=== PATIENT | female | born 1945 | race African-American/Black ===

== ENCOUNTER 2016-06-10 02:43 | Emergency (ER) | payer OTHER ==
[~2016-06-10] VITALS: Ht 160 cm; Wt 77.1 kg
[~2016-06-10 02:43] MED LIST: PERCOCET1 TAB ORAL; SOMA350 MG PO; VICODIN 5-3001 EACH ORAL
[2016-06-10] MEDS ORDERED: Oxymetazoline 0.05% Na Spray 30ml NASAL ONE ×2 (02:59→03:15)
[2016-06-10 03:04] VITALS: BP 165/86
[2016-06-10] MEDS ORDERED: Ketorolac 60mg Inj IM ONE (03:15)
[2016-06-10 03:18] VITALS: BP 165/86
--- NOTE | 2016-06-10 03:39 | Emergency Room Report ---
History of Present Illness General Chief Complaint: Nosebleed Source: Patient Present Illness HPI 70 YO F with concern for recurrent right sided epistaxis since the weekend (3 days). States her mother has been "turning up the heat" in the apartment. Last episode was "1 hour prior." She denies previous episodes. Was able to control the bleeding with applying pressure to nose and ice. Denies digital picking. Denies trauma, rhinorrhea, sinus congestion. Patient also c/o chronic right knee pain. States "I'm due for knee replacement. " Taking Vicodin at home. Requesting injection for pain. Allergies: Coded Allergies: PENICILLINS (Unverified Allergy, Mild, 11/23/13) Patient History Past Medical History: none Past Surgical History: none Pertinent Family History: none Social History: Denies: alcohol use, drug use, smoking Now: No Immunizations: UTD Reviewed Nursing Documentation: PMH: Agreed, PSxH: Agreed Nursing Documentation-PMH Past Medical History: No Stated History Review of Systems All Other Systems: negative except mentioned in HPI Physical Exam Vital Signs Date Time Temp Pulse Resp B/P Pulse Ox O2 Delivery O2 Flow Rate FiO2 06/10/16 02:46 97.9 82 16 171/86 96 Room Air Sp02 EP Interpretation: reviewed, normal General Appearance: normal inspection, well appearing, no apparent distress, alert, GCS 15, non-toxic Head: normocephalic, atraumatic Eyes: bilateral eye EOMI, bilateral eye PERRL ENT: normal ENT inspection, hearing grossly normal, normal pharynx, no angioedema, normal voice, TMs + canals normal, uvula midline, other - No active epistaxis. No dried blood in nares or oropharynx. Neck: normal inspection, full range of motion, supple, no bony tend Respiratory: normal inspection, chest non-tender, lungs clear, normal breath sounds, no rhonchi, no respiratory distress, no retraction, no accessory muscle use, no wheezing Cardiovascular #1: regular rate, rhythm, no edema Gastrointestinal: normal inspection, normal bowel sounds, non tender, soft, no guarding, no hernia Genitourinary: no CVA tenderness Musculoskeletal: normal inspection, back normal, normal range of motion, Alicia' s Sign negative, other - right knee: no obvious swelling/deformity, appreciable heat or sign of infection Neurologic: normal inspection, alert, oriented x3, responsive, community affairs manager III-XII nml as tested, motor strength/tone normal, speech normal Medical Decision Making Diagnostic Impression: Primary Impression: Epistaxis Additional Impression: Right knee pain Qualified Codes: M25.561 - Pain in right knee; G89.29 - Other chronic pain ER Course Alleged epistaxis: No active bleeding. VSS. Afebrile. Rx Afrin given Chronic right knee pain: Atraumatic. No sign of infection or trauma. ROM intact. IM toradol given in ED Patient requesting work note "in case the bleeding happens again." I told her I could give her off for tomorrow//06-10 but not a work note "in case" it happens again. After this exchange, I am concerned for malingering to receive time off from work given that patient endorsed recent epistaxis just prior to ED arrival but does not even demonstrate dried blood in nose or oropharynx Last Vital Signs Date Time Temp Pulse Resp B/P Pulse Ox O2 Delivery O2 Flow Rate FiO2 06/10/16 03:18 97.9 80 16 165/86 96 Room Air Status: improved Disposition: HOME, SELF-CARE Condition: Improved Referrals: BRANDAN TANNER MD (PCP) Patient Instructions: Nosebleed, [id number] Additional Instructions: - Use afrin 2 sprays each nostril, twice a day for only 2-3 days - Take Tylenol or appy ice to right knee for pain NARENDRA PINEDO M.D. Jun 10, 2016 03:39
[2016-06-11] MEDS ORDERED: PERCOCET 5-3251 EACH ORAL (02:36)
== END 2016-06-10 03:18 | disposition home or self-care (01) ==
LOC: EMR 03:03
DX: R04.0 Epistaxis (principal); M25.561 Pain in right knee; G89.29 Other chronic pain; Z88.0 Allergy status to penicillin
CPT/HCPCS: 30901

== ENCOUNTER 2016-06-10 23:03 | Emergency (ER) | payer OTHER ==
[~2016-06-10] VITALS: Ht 160 cm; Wt 78.5 kg
[2016-06-11] MEDS ORDERED: Silver Nitrate Stick TOPIC ONE (02:15)
[2016-06-11] MEDS ORDERED: Oxycodone/Acetaminophen 5-325 ORAL ONE (02:15)
[2016-06-11] MEDS ORDERED: PERCOCET 5-3251 EACH ORAL (02:36)
[2016-06-11 02:50] VITALS: BP 160/98
--- NOTE | 2016-06-11 03:32 | Emergency Room Report ---
History of Present Illness General Chief Complaint: Nosebleed Source: Patient Present Illness HPI 70 YO F returns again for 2nd night in a row for epistaxis, also for right nare. Placed cotton wick with resolution. Again denies digital manipulation. No other trauma. Allergies: Coded Allergies: PENICILLINS (Unverified Allergy, Mild, 11/23/13) Patient History Past Medical History: HTN Past Surgical History: none Pertinent Family History: none Social History: Denies: alcohol use, drug use, smoking Now: No Immunizations: UTD Reviewed Nursing Documentation: PMH: Agreed, PSxH: Agreed Nursing Documentation-PMH Past Medical History: No Stated History Review of Systems All Other Systems: negative except mentioned in HPI Physical Exam Vital Signs Date Time Temp Pulse Resp B/P Pulse Ox O2 Delivery O2 Flow Rate FiO2 06/10/16 23:06 97.2 90 18 183/114 93 Room Air Sp02 EP Interpretation: reviewed, normal General Appearance: normal inspection, well appearing, no apparent distress, alert Head: normocephalic, atraumatic Eyes: bilateral eye EOMI, bilateral eye PERRL ENT: normal ENT inspection, hearing grossly normal, normal voice, other - oozing at right keiselbech plexus. No blood in oropharynx. Left nare clear Neck: normal inspection, full range of motion, supple, no bony tend Respiratory: normal inspection, lungs clear, normal breath sounds, no respiratory distress, no retraction, no wheezing Cardiovascular #1: regular rate, rhythm, no edema Gastrointestinal: normal inspection, normal bowel sounds, non tender, soft, no guarding, no hernia Genitourinary: no CVA tenderness Musculoskeletal: normal inspection, back normal, normal range of motion, Alicia' s Sign negative Neurologic: normal inspection, alert, oriented x3, responsive, applications specialist III-XII nml as tested, motor strength/tone normal Psychiatric: normal inspection, judgement/insight normal, mood/affect normal Procedures Additional Procedure Procedure Narrative Cauterization of oozing from right nare Patient placed supine Area of oozing in plexus visualized with scope/light one application of silver nitrate stick used to create eschar, oozing stopped 1 attempt No complications Patient tolerated procedure, pleased with result Medical Decision Making Diagnostic Impression: Primary Impression: Epistaxis ER Course Recurrent epistaxis. VSS. Afebrile. Controlled with cautery in ED. Advised ENT followup in 2 days Last Vital Signs Date Time Temp Pulse Resp B/P Pulse Ox O2 Delivery O2 Flow Rate FiO2 06/11/16 02:50 97.2 80 18 160/98 93 Room Air Status: improved Disposition: HOME, SELF-CARE Condition: Improved Scripts Oxycodone/Acetaminophen 5-325* (PERCOCET 5-325 MG TABLET*) 1 Each Tablet 1 TAB ORAL Q6H Y for For Pain, #20 TAB Prov: NARENDRA PINEDO M.D. 06/11/16 Referrals: NON PHYSICIAN (PCP) Patient Instructions: Nosebleed, [id number] Additional Instructions: - You had cauterization of bleeding vessel in right keisselbach plexus in the ER - Please followup with ENT in 2-3 days - You can take percocet as needed for pain - Keep nose clean/dry, do not spray afrin there anymore - Return to ER if bleeding occurs again for balloon placement NARENDRA PINEDO M.D. Jun 11, 2016 03:32
== END 2016-06-11 02:50 | disposition home or self-care (01) ==
LOC: EMR 23:27
DX: R04.0 Epistaxis (principal); I10 Essential (primary) hypertension; Z88.0 Allergy status to penicillin; M25.561 Pain in right knee; G89.29 Other chronic pain
CPT/HCPCS: 30901

== ENCOUNTER 2016-06-23 05:51 | Emergency (ER) | payer OTHER ==
[~2016-06-23] VITALS: Ht 157.5 cm; Wt 77.1 kg
[~2016-06-23 05:51] MED LIST changes: +PERCOCET 5-3251 EACH ORAL
[2016-06-23 06:40] VITALS: BP 187/94
[2016-06-23] MEDS ORDERED: Oxycodone/Acetaminophen 5-325 ORAL ONE (07:00)
[2016-06-23] MEDS ORDERED: Silver Nitrate Stick TOPIC ONE (07:00)
[2016-06-23] MEDS ORDERED: Oxymetazoline 0.05% Na Spray 30ml NASAL ONE (07:15)
[2016-06-23] MEDS ORDERED: NORVASC5 MG ORAL (07:48)
[2016-06-23] MEDS ORDERED: PERCOCET 5-3251 EACH ORAL (07:48)
--- NOTE | 2016-06-23 07:56 | Emergency Room Report ---
History of Present Illness General Chief Complaint: Nosebleed Source: Patient Present Illness HPI 70 YO F here for third visit in last month for recurrent epistaxis, this time on left side. Started at 3am. Has stopped already. Patient states her mother keeps house warm. Patient denies digital manipulation, trauma. Of note, patient has had elevated BP each of the 3 visits here for epistaxis. ? whether correlation between HTN and epistaxis. BP could also be high because of OA - patient ran out of home pain meds. Has ortho appt upcoming for possible right knee replacement. Not diagnosed with HTN nor ever treated for it. Allergies: Coded Allergies: PENICILLINS (Unverified Allergy, Mild, 11/23/13) Patient History Past Medical History: none Past Surgical History: none Pertinent Family History: none Social History: Denies: alcohol use, drug use, smoking Last Menstrual Period: Menopause Now: No Immunizations: UTD Reviewed Nursing Documentation: PMH: Agreed, PSxH: Agreed Nursing Documentation-PMH Past Medical History: No Stated History Review of Systems All Other Systems: negative except mentioned in HPI Physical Exam Vital Signs Date Time Temp Pulse Resp B/P Pulse Ox O2 Delivery O2 Flow Rate FiO2 06/23/16 06:36 98.1 73 15 187/94 97 Room Air Sp02 EP Interpretation: reviewed, abnormal General Appearance: normal inspection, well appearing, no apparent distress, alert, GCS 15, non-toxic Head: normocephalic, atraumatic Eyes: bilateral eye EOMI, bilateral eye PERRL ENT: normal pharynx, no angioedema, normal voice, TMs + canals normal, uvula midline, moist mucus membranes, other - Right nare: normal. Left nare: dried blood in anterior plexus with mild amount of oozing Neck: normal inspection, full range of motion, supple, no bony tend Respiratory: normal inspection, lungs clear, normal breath sounds, no respiratory distress, no retraction, no wheezing Cardiovascular #1: regular rate, rhythm, no edema Gastrointestinal: normal inspection, normal bowel sounds, non tender, soft, no guarding, no hernia Genitourinary: no CVA tenderness Musculoskeletal: normal inspection, back normal, normal range of motion, Alicia' s Sign negative Neurologic: normal inspection, alert, oriented x3, responsive, speech normal Psychiatric: normal inspection, judgement/insight normal, mood/affect normal Skin: normal inspection, normal color, no rash Medical Decision Making Diagnostic Impression: Primary Impression: Epistaxis ER Course 70 YO F with recurrent epistaxis. Elevated BP. Afebrile. Oxymetazoline spray to left nostril followed by silver nitrate cautery CT sinuses: no acute finding to explain epistaxis. Incidental thyroid mass - patient/family informed of need for followup; copy given of CT result to them as well Started Norvasc in ED. Will Rx Norvasc 30 days. Recommended PMD followup Advised to avoid NSAIDs for pain. Rx [place] provided DC home Last Vital Signs Date Time Temp Pulse Resp B/P Pulse Ox O2 Delivery O2 Flow Rate FiO2 06/23/16 06:40 98.1 98 16 187/94 99 Room Air Status: improved Disposition: HOME, SELF-CARE Condition: Improved Scripts Oxycodone/Acetaminophen 5-325* (PERCOCET 5-325 MG TABLET*) 1 Each Tablet 1 TAB ORAL Q6H Y for For Pain, #20 TAB Prov: NARENDRA PINEDO M.D. 06/23/16 Amlodipine Besylate (Norvasc) 5 Mg Tablet 5 MG ORAL DAILY for 30 Days, #30 TAB Prov: NARENDRA PINEDO M.D. 06/23/16 Referrals: [facility],REFERRING (PCP) Patient Instructions: Hypertension, [id number], Nosebleed, [id number], Managing Your High Blood Pressure Additional Instructions: - Use nose spray at home, both sides, 1 spray twice a day for 3 days - START taking norvasc 5mg each morning (starting ) for high blood pressure and followup with your doctor - Call insurance company for ENT referral NARENDRA PINEDO M.D. Jun 23, 2016 07:56
[2016-06-23 08:43] VITALS: BP 174/92
--- NOTE | 2016-06-23 08:57 | Diagnostic Imaging Report ---
Indication: Trauma Technique: Continuous helical transaxial imaging of the maxillofacial structures obtained without intravenous contrast administration. Coronal 2-D reformats were also obtained. Study obtained in a Siemens sensation [address] Total Dose length Product (DLP): [address] Dose Index Volume (CTDIvol): 28 mGy Comparison: None Findings: No acute fracture is identified. There is slight indentation of a portion of the right lamina paprycea consistent with an old medial orbital wall fracture. The paranasal sinuses are essentially clear. Mastoids are clear bilaterally. Orbits are unremarkable in appearance. Incidentally, there is shift of the airway toward the right side which appears to be on the basis of a left-sided mass. This is probably an enlarged thyroid gland and is not assessed adequately on this examination. Impression: No acute fracture identified. 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 Rightward deviation of the airway probably on the basis of an enlarged left lobe of the thyroid gland, although incompletely imaged on this examination. The CT scanner at [facility] is accredited by the [employer] and the scans are performed using protocols designed to limit radiation exposure to as low as reasonably achievable to attain images of sufficient resolution adequate for diagnostic evaluation.
[2016-06-23 09:23] VITALS: BP 177/89
[2016-06-23 09:24] VITALS: BP 177/89
== END 2016-06-23 09:28 | disposition home or self-care (01) ==
LOC: EMR 06:57
DX: R04.0 Epistaxis (principal); M19.90 Unspecified osteoarthritis, unspecified site; Z88.0 Allergy status to penicillin
CPT/HCPCS: 70486; 99284

== ENCOUNTER 2016-11-01 10:10 | Emergency (ER) | payer OTHER ==
[~2016-11-01] VITALS: Ht 165.1 cm; Wt 81.2 kg
[~2016-11-01 10:10] MED LIST changes: +NORVASC5 MG ORAL
[2016-11-01 10:14] VITALS: BP 150/79
[2016-11-01] MEDS ORDERED: Ketorolac 60mg Inj IM ONE (11:00)
[2016-11-01] MEDS ORDERED: ROBAXIN-750750 MG PO (11:26)
[2016-11-01 11:40] VITALS: BP 150/79
--- NOTE | 2016-11-03 07:20 | Emergency Room Report ---
History of Present Illness General Chief Complaint: Back Pain-No Injury Source: Patient Present Illness HPI 71YOF [employer] walk-in patient with "back spasms" for 1 day after heavy cleaning/vacuuming preparing for house guests. Denies known lower back pain, sciatica, disc issues Denies fever/chills, urinary complaints Denies nausea/vomiting, chest pain, SOB, abd pain, headache Allergies: Coded Allergies: ASPIRIN (Verified Allergy, Severe, 11/01/16) bleeding PENICILLINS (Unverified Allergy, Mild, 11/23/13) Patient History Past Medical History: HTN Past Surgical History: none Pertinent Family History: none Social History: Denies: alcohol use, drug use, smoking Last Menstrual Period: na Now: No Immunizations: UTD Reviewed Nursing Documentation: PMH: Agreed, PSxH: Agreed Nursing Documentation-PMH Past Medical History: No Stated History Review of Systems All Other Systems: negative except mentioned in HPI Physical Exam Vital Signs Date Time Temp Pulse Resp B/P Pulse Ox O2 Delivery O2 Flow Rate FiO2 11/01/16 10:14 98.8 77 18 150/79 100 Room Air Sp02 EP Interpretation: reviewed, normal General Appearance: normal inspection, well appearing, no apparent distress, alert, GCS 15, non-toxic Head: normocephalic, atraumatic Eyes: bilateral eye EOMI, bilateral eye PERRL ENT: normal ENT inspection, hearing grossly normal, normal voice Neck: normal inspection, full range of motion, supple, no bony tend Respiratory: normal inspection, lungs clear, normal breath sounds, no respiratory distress, no retraction, no wheezing Cardiovascular #1: regular rate, rhythm, no edema Gastrointestinal: normal inspection, normal bowel sounds, non tender, soft, no guarding, no hernia Genitourinary: no CVA tenderness Musculoskeletal: other - Multiple areas of tight/spasm in back Neurologic: normal inspection, alert, oriented x3, responsive, electron beam welding machine operator III-XII nml as tested, motor strength/tone normal, speech normal Psychiatric: normal inspection, judgement/insight normal, mood/affect normal Skin: normal inspection, normal color, no rash Medical Decision Making Diagnostic Impression: Primary Impression: Back pain Qualified Codes: M54.6 - Pain in thoracic spine ER Course Multiple areas of back spasm VSS Afebrile Likely result of heavy cleaning/vacuuming day before Pain worse with movement Unlikely cardio-throacic or abd emergency given preciptating activity that caused pain, and pain worse with movement Resolved with valium, toradol Rx Robaxin Close PMD followup DC home Last Vital Signs Date Time Temp Pulse Resp B/P Pulse Ox O2 Delivery O2 Flow Rate FiO2 11/01/16 11:40 98.8 77 18 150/79 100 Room Air Status: improved Disposition: HOME, SELF-CARE Condition: Improved Scripts Methocarbamol* (ROBAXIN-750*) 750 Mg Tablet 750 MG PO TID for 7 Days, #30 TAB 0 Refills Prov: NARENDRA PINEDO M.D. 11/01/16 Referrals: [facility],REFERRING (PCP) Patient Instructions: Back Pain, Adult Additional Instructions: - Take Robaxin up to 3x a day for muscle pain/spasm - Try to stetch as often as possible - Apply heat or ice, see what works better - Follow up with primary care doctor for worsening pain NARENDRA PINEDO M.D. Nov 03, 2016 07:20
== END 2016-11-01 11:43 | disposition home or self-care (01) ==
LOC: EMR 10:44
DX: M54.6 Pain in thoracic spine (principal); I10 Essential (primary) hypertension; Z88.0 Allergy status to penicillin; Z79.82 Long term (current) use of aspirin
CPT/HCPCS: 96372; 99283

== ENCOUNTER 2017-07-23 20:19 | Emergency (ER) | payer SELFPAY ==
[~2017-07-23] VITALS: Ht 160 cm; Wt 79.4 kg
[~2017-07-23 20:19] MED LIST changes: +ROBAXIN-750750 MG PO
--- NOTE | 2017-07-23 20:50 | Emergency Room Report ---
History of Present Illness General Chief Complaint: Pain Source: Patient Present Illness HPI Patient is a 71-year-old female who presented after increased right-sided knee pain. Previous knee replacement. Patient reports having worsening pain. Had this had gradual onset. She denies any fever. She denies any knee discharge from her surgical site. She denies any calf pain or swelling. Patient had been unable to ambulate well. She denies any recent trauma or falls. Allergies: Coded Allergies: ASPIRIN (Verified Allergy, Severe, 11/01/16) bleeding PENICILLINS (Unverified Allergy, Mild, 11/23/13) Patient History Past Medical History: see triage record Last Menstrual Period: none Now: No : 3 Para: 3 Reviewed Nursing Documentation: PMH: Agreed; PSxH: Agreed Nursing Documentation-PMH Hx Cardiac Problems: No - right knee surgery Review of Systems All Other Systems: negative except mentioned in HPI Physical Exam Vital Signs Date Time Temp Pulse Resp B/P (MAP) Pulse Ox O2 Delivery O2 Flow Rate FiO2 07/23/17 20:28 98.6 84 15 168/77 95 Room Air 98.6 General Appearance: well appearing, no apparent distress, alert, GCS 15 Head: normocephalic, atraumatic ENT: hearing grossly normal, normal voice Neck: full range of motion, supple Respiratory: no respiratory distress, speaking full sentences Cardiovascular #1: normal inspection Musculoskeletal: no calf tenderness, other - no erythema or swelling noted Neurologic: alert, oriented x3, responsive, normal gait Psychiatric: mood/affect normal Skin: no rash Medical Decision Making Diagnostic Impression: Primary Impression: Knee pain, acute Additional Impression: Chronic knee pain ER Course Patient presented for right knee pain. Differential diagnosis included was not limited to infected hardware, loosening of hardware, DVT, vascular insufficiency , among others. Patient has a benign exam and does not appear to require any further imaging or laboratory testing at this time. The patient was offered x- rays of her right knee which she declined she stated she wanted to see her orthopedic physician. The patient was given prescription for pain medications. She is advised to follow-up with her orthopedist for repeat examination and further evaluation. Last Vital Signs Date Time Temp Pulse Resp B/P (MAP) Pulse Ox O2 Delivery O2 Flow Rate FiO2 07/23/17 20:28 98.6 84 15 168/77 95 Room Air 98.6 Status: improved Disposition: HOME, SELF-CARE Condition: Stable Mike Strauss Jul 23, 2017 20:50
[2017-07-23] MEDS ORDERED: PERCOCET 5-3251 EACH ORAL (20:51)
[2017-07-23 21:00] VITALS: BP 159/81
[2017-07-23] MEDS ORDERED: oxyCODONE HCL/Acetaminophen 5/325mg ORAL ONE (21:00)
== END 2017-07-23 21:05 | disposition home or self-care (01) ==
LOC: EMR 21:01
DX: M25.561 Pain in right knee (principal); G89.29 Other chronic pain; Z96.659 Presence of unspecified artificial knee joint; Z88.0 Allergy status to penicillin; Z88.6 Allergy status to analgesic agent
CPT/HCPCS: 99282

== ENCOUNTER 2017-09-18 17:47 | Emergency (ER) | payer SELFPAY ==
[~2017-09-18] VITALS: Ht 157.5 cm; Wt 81.6 kg
[2017-09-18 18:29] VITALS: BP 139/79
[2017-09-18 19:18] VITALS: BP 139/79
--- NOTE | 2017-09-18 19:42 | Emergency Room Report ---
History of Present Illness General Chief Complaint: Pain Source: Patient Present Illness HPI 71-year-old female presents ED for evaluation. Complaining of right knee pain. Patient states she has persistent knee pain for years. Had a knee replacement in April at [facility]. Has been prescribed pain medication by her PMD but states that she ran out. Pain is throbbing, 10 out of 10, nonradiating. Denies any recent injury. Is able to walk. No other aggravating relieving factors. Denies any other associated symptoms Allergies: Coded Allergies: ASPIRIN (Verified Allergy, Severe, 11/01/16) bleeding PENICILLINS (Unverified Allergy, Mild, 11/23/13) Patient History Past Medical History: none Past Surgical History: other - R knee replacement Pertinent Family History: none Social History: Denies: smoking, alcohol use, drug use Now: No Immunizations: UTD Reviewed Nursing Documentation: PMH: Agreed; PSxH: Agreed Nursing Documentation-PMH Past Medical History: No History, Except For Hx Cardiac Problems: No - right knee surgery Hx Neurological Problems: Yes - arthritis Review of Systems All Other Systems: negative except mentioned in HPI Physical Exam Vital Signs Date Time Temp Pulse Resp B/P (MAP) Pulse Ox O2 Delivery O2 Flow Rate FiO2 09/18/17 17:55 97.6 76 18 139/79 98 Room Air 97.5 Sp02 EP Interpretation: reviewed, normal General Appearance: no apparent distress, alert, GCS 15, non-toxic Head: normocephalic Eyes: bilateral eye normal inspection, bilateral eye PERRL ENT: normal ENT inspection Neck: normal inspection Respiratory: normal inspection Cardiovascular #1: normal inspection Gastrointestinal: normal inspection Rectal: deferred Genitourinary: no CVA tenderness Musculoskeletal: normal range of motion, tender - R knee Neurologic: alert, oriented x3, responsive, motor strength/tone normal, sensory intact, speech normal Psychiatric: normal inspection Skin: normal inspection Lymphatic: normal inspection Medical Decision Making Diagnostic Impression: Primary Impression: Chronic knee pain Qualified Codes: M25.561 - Pain in right knee; G89.29 - Other chronic pain Additional Impression: Opiate dependence Qualified Codes: F11.20 - Opioid dependence, uncomplicated ER Course Hospital Course 71-year-old male presents to ED complaining of R knee pain no trauma Differential diagnoses include: Fracture, dislocation, sprain, contusion, bursitis Clinical course Patient placed on stretcher. After initial history, physical exam reveals an middle-aged female in no acute distress. There is evidence of a old surgical scar to the right knee. No swelling. No induration. Full range of motion. I reviewed EMR patient has been here multiple times for pain-related complaints. I reviewed CURES patient is receiving high quantity of pain medications. I explained to the patient that I cannot provide any additional prescriptions and she needs to follow-up with her PMD or orthopedic doctor. I agreed to provide her with pain medication here which she agreed to take Diagnosis - chronic knee pain, opiate dependence Stable and discharged to home. Followup with PMD. Return to ED if symptoms recur or worsen Last Vital Signs Date Time Temp Pulse Resp B/P (MAP) Pulse Ox O2 Delivery O2 Flow Rate FiO2 09/18/17 19:18 97.5 81 18 139/79 98 Room Air 97.5 Status: improved Disposition: HOME, SELF-CARE Condition: Stable Referrals: NOT CHOSEN [facility]/,REFERRING (PCP) Patient Instructions: Chronic Pain Hema Bryant MD Sep 18, 2017 19:42
== END 2017-09-18 19:18 | disposition home or self-care (01) ==
LOC: EMR 18:30
DX: M25.561 Pain in right knee (principal); G89.29 Other chronic pain; F11.20 Opioid dependence, uncomplicated; M19.90 Unspecified osteoarthritis, unspecified site; Z88.0 Allergy status to penicillin; Z88.6 Allergy status to analgesic agent; Z96.651 Presence of right artificial knee joint
CPT/HCPCS: 99283

== ENCOUNTER 2018-03-12 15:22 | Emergency (ER) | payer OTHER ==
[~2018-03-12] VITALS: Ht 157.5 cm; Wt 77.1 kg
[2018-03-12 15:49] VITALS: BP 198/87
[2018-03-12] MEDS ORDERED: Morphine Sulfate 4mg/ml Inj (IV/IM USE ONLY) IM ONE (16:00)
[2018-03-12] MEDS ORDERED: SOMA350 MG PO (16:00)
[2018-03-12 16:10] VITALS: BP 159/87
--- NOTE | 2018-03-12 18:19 | Emergency Room Report ---
History of Present Illness General Chief Complaint: Pain Source: Patient Present Illness HPI 72-year-old female presents to ED complaining of left knee pain and lower back pain for 3 days. Denies any recent fall or injury. Patient has history of chronic knee pain. Patient is well-known to [facility] [place]. States that her doctor is out of town and she cannot get a refill of her pain meds. Pain is 8 out of 10, dull, nonradiating. s dysuria or flank pain. No other aggravating relieving factors. Allergies: Coded Allergies: ASPIRIN (Verified Allergy, Severe, 11/01/16) bleeding PENICILLINS (Unverified Allergy, Mild, 11/23/13) Patient History Past Medical History: none Past Surgical History: none Pertinent Family History: no significant inherited disorders Now: No Immunizations: UTD Reviewed Nursing Documentation: PMH: Agreed; PSxH: Agreed Nursing Documentation-PMH Past Medical History: No History, Except For Hx Cardiac Problems: No - right knee surgery Hx Neurological Problems: Yes - arthritis Review of Systems All Other Systems: negative except mentioned in HPI Physical Exam Physical Exam Vital Signs Date Time Temp Pulse Resp B/P (MAP) Pulse Ox O2 Delivery O2 Flow Rate FiO2 03/12/18 15:30 98.4 68 18 204/95 97 Room Air Sp02 EP Interpretation: reviewed, normal General Appearance: no apparent distress, alert, non-toxic, normal attentiveness for age, normal consolability Head: normocephalic Eyes: bilateral eye normal inspection, bilateral eye PERRL ENT: normal ENT inspection Neck: normal inspection Respiratory: normal inspection Cardiovascular: normal inspection Gastrointestinal: normal inspection Rectal: deferred Genitourinary: normal inspection Musculoskeletal: other - L knee. full ROM Neurologic: normal inspection, oriented (for age) Psychiatric: normal inspection Skin: normal inspection Lymphatic: normal inspection Medical Decision Making Diagnostic Impression: Primary Impression: Chronic knee pain Qualified Codes: M25.562 - Pain in left knee; G89.29 - Other chronic pain Additional Impressions: Back pain Qualified Codes: M54.5 - Low back pain; G89.29 - Other chronic pain Pain ER Course Hospital Course 72-year-old female presents to ED complaining of left knee pain, back pain no trauma Differential diagnoses include: Fracture, dislocation, sprain, contusion, bursitis Clinical course Patient placed on stretcher. After initial history, physical exam reveals an elderly female in no acute distress. There is full range of motion to the left knee. No deformity. Some paraspinal lumbar pain. Patient has been here multiple times for similar pain related complaints. CURES shows extensive narcotic prescriptions filled on a monthly basis. I explained this to the patient; I cannot provide her with any refills of her medications. Agreed to provide her with one dose of IM pain meds here and a three-day course of Soma. She will have to follow up with her PMD for any additional medications Diagnosis - chronic knee pain, back pain, stable and discharged to home with prescription for Soma. Followup with PMD. Return to ED if symptoms recur or worsen Last Vital Signs Date Time Temp Pulse Resp B/P (MAP) Pulse Ox O2 Delivery O2 Flow Rate FiO2 03/12/18 16:10 98.0 74 18 159/87 100 Room Air Status: improved Disposition: HOME, SELF-CARE Condition: Stable Scripts Carisoprodol* (SOMA*) 350 Mg Tablet 350 MG PO Q6H for 3 Days, TAB Prov: Hema Bryant MD 03/12/18 Referrals: NOT CHOSEN IPA/,REFERRING Patient Instructions: Chronic Pain Hema Bryant MD Mar 12, 2018 18:18
== END 2018-03-12 16:10 | disposition other institution (70) ==
LOC: EMR 16:00
DX: G89.29 Other chronic pain (principal); M25.562 Pain in left knee; M54.5 Low back pain; Z88.0 Allergy status to penicillin; Z88.6 Allergy status to analgesic agent
CPT/HCPCS: 96372; 99283; J2270

== ENCOUNTER → 2019-05-20 | Emergency (ER) | payer OTHER ==
[~2019-05-20] VITALS: Ht 154.9 cm; Wt 77.1 kg
[~2019-05-20] MED LIST changes: +Dexamethasone 4mg/ml vial IVP ONE; +Ketorolac 30mg Inj IM ONE; +LIDODERM700 M1 TOPIC; +Methocarbamol 750mg tab ORAL ONE; +NAPROXEN250 MG ORAL; +oxyCODONE HCL/Acetaminophen 5/325mg ORAL ONE
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
[2019-05-20 03:52] VITALS: BP 200/100
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
[2019-05-20 04:35] VITALS: BP 185/96
--- NOTE | 2019-05-20 04:35 | NUR ---
ER DISCHARGE NOTE: Patient cleared for DC by Dr. Amin. Patient verbalized understanding of DC and prescription instructions. all medical devices such as ID band removed. patient AOx4, ambulates with steady gait, pt left with all belongings
== END | disposition home or self-care (01) ==
LOC: EMR 09:00
DX: M62.838 Other muscle spasm (principal); M19.90 Unspecified osteoarthritis, unspecified site; Z88.6 Allergy status to analgesic agent; Z88.0 Allergy status to penicillin
CPT/HCPCS: 96372; 96374; 99284; J1885